=== PATIENT | male | born 1970 | race Caucasian/White ===

== ENCOUNTER 2016-09-30 07:49 | Emergency (ER) | payer OTHER ==
[2016-09-30 07:49] VITALS: BMI 29.0
[2016-09-30] MEDS ORDERED: Lidocaine 5% Patch TD STA (08:30)
[2016-09-30] MEDS ORDERED: Lidocaine 5% Patch TD ONE (08:47)
--- NOTE | 2016-09-30 09:44 | RAD ---
Left shoulder three views History: Shoulder pain. Comparison: None available. Findings: Moderate narrowing of the left glenohumeral joint space. Moderate degenerative changes of the acromioclavicular joint space with subchondral sclerosis and bony hypertrophy. No evidence of acute displaced fracture or dislocation. Impression: Moderate degenerative changes of the left shoulder. If pain persists, consider MRI.
[2016-09-30 09:49] VITALS: BP 109/72; PULSE 67; RESP 20; TEMP 98.1; O2SAT 97
--- NOTE | 2016-09-30 10:27 | C.PDOC ---
History Of Present Illness 46 yr old male presents to the ER with complaints of left shoulder pain, radiating down to the left arm for the past 2 days. Patient states the pain started in the night when he rolled over in bed. 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 States the pain is relieved when he lifts his arm above his head. Denies trauma, chest pain, SOB, neck pain, back pain, weakness or numbness. Time Seen by Provider: 09/30/16 08:13 Chief Complaint (Nursing): Upper Extremity Problem/Injury History Per: Patient History/Exam Limitations: no limitations Onset/Duration Of Symptoms: Days (2 days) Current Symptoms Are (Timing): Still Present Past Medical History Reviewed: Historical Data, Nursing Documentation, Vital Signs Vital Signs: Last Vital Signs Temp 98.1 F 09/30/16 09:48 Pulse 67 09/30/16 09:48 Resp 20 09/30/16 09:48 BP 109/72 09/30/16 09:48 Pulse Ox 97 09/30/16 11:39 Family History: States: No Known Family Hx - Social History Hx Alcohol Use: No Hx Substance Use: No - Immunization History Hx Tetanus Toxoid Vaccination: No Hx Influenza Vaccination: No Hx Pneumococcal Vaccination: No Review Of Systems Except As Marked, All Systems Reviewed And Found Negative. Cardiovascular: Negative for: Chest Pain Respiratory: Negative for: Shortness of Breath Musculoskeletal: Positive for: Shoulder Pain (Left shoulder ), Arm Pain (Left arm ). Negative for: Neck Pain, Back Pain Neurological: Negative for: Weakness, Numbness Physical Exam - Physical Exam Appears: Non-toxic, No Acute Distress Skin: Warm, Dry, No Rash Head: Atraumatic, Normacephalic Neck: Normal, Normal ROM, Supple Chest: Symmetrical, No Tenderness Cardiovascular: Rhythm Regular, No Murmur Respiratory: Normal Breath Sounds, No Rales, No Rhonchi, No Stridor, No Wheezing Extremity: Tenderness (Diffusly tender to the inferior left scapula. ), Capillary Refill (<2), Other ((+) Difficulty moving the left arm with internal rotation. ) Neurological/Psych: Oriented x3, Normal Speech, Normal Motor ED Course And Treatment ECG: Interpreted By Me ECG Rhythm: Sinus Rhythm ECG Interpretation: No Acute Changes Rate From EC O2 Sat by Pulse Oximetry: 97 (RA ) Pulse Ox Interpretation: Normal - Other Rad X-Ray - Left Shoulder X-Ray: Viewed By Me, Read By Radiologist Interpretation: Left shoulder three views. History: Shoulder pain. Comparison : None available. Findings: Moderate narrowing of the left glenohumeral joint space. Moderate degenerative changes of the acromioclavicular joint space with subchondral sclerosis and bony hypertrophy. No evidence of acute displaced fracture or dislocation. Impression: Moderate degenerative changes of the left shoulder. If pain persists, consider MRI. Progress Note: Toradol IM. Lidoderm patch. On re-evaluation feels better. Arm sling was applied. Patient was d/c home with PMD and Ortho follow up. Medical Decision Making Medical Decision Making: PLAN: * X-Ray - Left Shoulder * EKG * Lidoderm TD * Toradol IM Disposition - Disposition Referrals: Erick Topete III, MD [Staff Provider] - [facility] [Outside] [facility] [Outside] Disposition: HOME/ ROUTINE Disposition Time: 11:37 Condition: STABLE Additional Instructions: Follow up with PMD and Orthopedist within 2-3 days. Return to ED if feel worse. Prescriptions: Ibuprofen [Motrin Tab] 600 mg PO Q8 #30 tab oxyCODONE/Acetaminophen [Percocet 5/325 mg Tab] 1 tab PO QID PRN #20 tab PRN Reason: Pain Instructions: Shoulder Pain (ED) Forms: [facility] (Portuguese) Print Language: SOMALI - Clinical Impression Clinical Impression: Shoulder pain - PA / GAME MASTER / Resident Statement MD/DO has reviewed & agrees with the documentation as recorded. - Scribe Statement The provider has reviewed the documentation as recorded by the Scribe Ariela Aguilar All medical record entries made by the Scribe were at my direction and personally dictated by me. I have reviewed the chart and agree that the record accurately reflects my personal performance of the history, physical exam, medical decision making, and the department course for this patient. I have also personally directed, reviewed, and agree with the discharge instructions and disposition.
== END 2016-09-30 11:40 | disposition home or self-care (01) ==
LOC: C.ER 07:49
DX: M25.512 Pain in left shoulder (principal)
CPT/HCPCS: 73030; 96372; 99284; J1885

== ENCOUNTER 2017-06-18 11:19 | Emergency (ER) | payer OTHER ==
[2017-06-18 11:20] VITALS: BMI 29.0
[2017-06-18 11:49] VITALS: BP 146/88; PULSE 86; RESP 18; TEMP 98.1; O2SAT 97
--- NOTE | 2017-06-18 12:39 | C.PDOC ---
History Of Present Illness 47 y/o male presents to the ED for evaluation of generalized hives and itchiness that has been intermittent for 1 week. Patient denies known cause or exposure. Denies shortness of breath, nausea and vomiting. GEN HIVES, ITCH X 1 WEEK. INTERMIT. NO KNOWN CAUSE, EXPOSURE. NO SOB, NV EXAM NARD SKIN GEN HIVES NO ANGIOEDEMA REMAINDER NEG Time Seen by Provider: 06/18/17 11:55 Chief Complaint (Nursing): Allergic Reaction History Per: Patient History/Exam Limitations: no limitations Onset/Duration Of Symptoms: Intermittent Episodes (1 week) Current Symptoms Are (Timing): Still Present Possible Cause: Unknown Associated Symptoms: Itching Additional History Per: Patient Past Medical History Reviewed: Historical Data, Nursing Documentation, Vital Signs Vital Signs: Last Vital Signs Temp 98.1 F 06/18/17 11:46 Pulse 86 06/18/17 11:46 Resp 18 06/18/17 11:46 BP 146/88 06/18/17 11:46 Pulse Ox 97 06/18/17 12:52 - Medical History PMH: No Chronic Diseases Surgical History: No Surg Hx Family History: States: Unknown Family Hx - Social History Hx Alcohol Use: No Hx Substance Use: No - Immunization History Hx Tetanus Toxoid Vaccination: No Hx Influenza Vaccination: No Hx Pneumococcal Vaccination: No Review Of Systems Respiratory: Negative for: Shortness of Breath Gastrointestinal: Negative for: Nausea, Vomiting Skin: Positive for: Other (generalized hives and itchiness ) Physical Exam - Physical Exam Appears: Non-toxic, Other (no acute respiratory distress ) Skin: Warm, Dry, Other (generalized hives. no angioedema ) Head: Atraumatic, Normacephalic Eye(s): bilateral: Normal Inspection Oral Mucosa: Moist Neck: Supple Chest: Symmetrical, No Deformity, No Tenderness Cardiovascular: Rhythm Regular, No Murmur Respiratory: Normal Breath Sounds, No Rales, No Rhonchi, No Wheezing Extremity: Normal ROM, Calf Tenderness (less than 2 seconds ) Neurological/Psych: Oriented x3, Normal Speech, Normal Cognition ED Course And Treatment O2 Sat by Pulse Oximetry: 97 (on RA ) Pulse Ox Interpretation: Normal Progress Note: Benadryl PO, Pepcid PO, and Prednisone PO administered. Disposition Counseled Patient/Family Regarding: Diagnosis, Need For Followup, Rx Given - Disposition Referrals: [facility] [Outside] [facility] [Outside] Disposition: HOME/ ROUTINE Disposition Time: 12:51 Condition: IMPROVED Prescriptions: DiphenhydrAMINE [Benadryl] 50 mg PO TID PRN #30 cap PRN Reason: Itching / Pruritus Famotidine [Pepcid AC] 10 mg PO DAILY #4 tablet predniSONE [Prednisone] 60 mg PO DAILY #12 tab Instructions: Hives (DC) Forms: Work/School/Gym Excuse, [facility] (Lao) - Clinical Impression Clinical Impression: Allergic urticaria - Scribe Statement The provider has reviewed the documentation as recorded by the Scribe (Debi Still) Provider Attestation: All medical record entries made by the Scribe were at my direction and personally dictated by me. I have reviewed the chart and agree that the record accurately reflects my personal performance of the history, physical exam, medical decision making, and the department course for this patient. I have also personally directed, reviewed, and agree with the discharge instructions and disposition.
== END 2017-06-18 13:02 | disposition home or self-care (01) ==
LOC: C.ER 11:19
DX: L50.0 Allergic urticaria (principal)

== ENCOUNTER 2018-01-12 17:52 | Emergency (ER) | payer OTHER ==
[2018-01-12 17:53] VITALS: BMI 29.0
[2018-01-12 18:05] VITALS: RESP 18
[2018-01-12] MEDS ORDERED: Lidocaine 1% w Epi 1:100,000 Inj INJ ONE (18:28)
[2018-01-12] MEDS ORDERED: Tmp-Smz 800 mg-160 mg DS Tab PO STA (18:55)
[2018-01-12] MEDS ORDERED: Bacitracin 500 Units/gm Oint Foilpak UD TOP ONE (18:55)
[2018-01-12] MEDS ORDERED: Tmp-Smz 800 mg-160 mg DS Tab ONE (19:09)
[2018-01-12] MEDS ORDERED: Bacitracin 500 Units/gm Oint Foilpak UD ONE (19:09)
--- NOTE | 2018-01-12 19:18 | C.PDOC ---
History Of Present Illness 47 yo male came to ER for swelling and redness to his right face and left knee. A week ago, pt shaved and notice "hair inside" which his removed. After that the area became swollen, red and with discharge. Two day ago he noted to have redness to the left knee. He was taking ampicillin from a friend and notes the swelling improved in comparison to yesterday. (+) subjective fever. Denies chest pain, sob, abdominal pain, change in sensation, dental pain, difficulty breathing or swallowing. Notes he is up to date on tetanus. Time Seen by Provider: 01/12/18 18:15 Chief Complaint (Nursing): Abnormal Skin Integrity History Per: Patient, Family () History/Exam Limitations: no limitations Onset/Duration Of Symptoms: Days Current Symptoms Are (Timing): Still Present Quality Of Symptoms: Painful, Swollen, Draining Past Medical History Vital Signs: Last Vital Signs Temp 98.3 F 01/12/18 18:03 Pulse 96 H 01/12/18 18:03 Resp 18 01/12/18 18:03 BP 134/87 01/12/18 18:03 Pulse Ox 98 01/12/18 18:03 Family History: States: Unknown Family Hx - Social History Hx Alcohol Use: No Hx Substance Use: No - Immunization History Hx Tetanus Toxoid Vaccination: No Hx Influenza Vaccination: No Hx Pneumococcal Vaccination: No Review Of Systems Except As Marked, All Systems Reviewed And Found Negative. Constitutional: Positive for: Fever (subjective) Physical Exam - Physical Exam Appears: Well, Non-toxic, No Acute Distress Skin: Warm, Dry, Other ((+) 2 cm area of erythema and tenderness right side of the lip (+) 5cm area of erythema with central skin break to left knee) Head: Atraumatic, Normacephalic Eye(s): bilateral: Normal Inspection, EOMI Nose: Normal Oral Mucosa: Moist Neck: Normal, Normal ROM, Supple Chest: Symmetrical Respiratory: No Accessory Muscle Use Back: Normal Inspection Extremity: Normal ROM Neurological/Psych: Oriented x3, Normal Speech ED Course And Treatment O2 Sat by Pulse Oximetry: 98 Progress Note: Area of erythema was circled. Lip abscess was aspirated with purulent discharge. Discussed concern for scarring, no incision was made. Instructed wound care and wound check in 2 days. Discussed return precautions. - Incision & Drainage Of Abscess Anesthesia: Lidocaine 1%, With Epi Prep Used: Sterile Water, Betadine Procedure: Incised W/Scalpel Blade#: (area was aspirated, no incision was made), Drained Pus, Irrigated Cavity W/Saline, Cultures Obtained And Sent To Lab Disposition - Disposition Disposition: HOME/ ROUTINE Disposition Time: 19:16 Condition: STABLE Additional Instructions: Return in 2 days for a wound check or sooner if symptoms persist or worsen. Prescriptions: Cephalexin [cephalexin] 500 mg PO BID #14 cap Mupirocin 2% Ointment [Bactroban Ointment] 1 appl TP TID #1 tube Sulfamethoxazole/Trimethoprim [Bactrim DS 800 mg-160 mg] 1 tab PO BID #14 tab Instructions: Abscess Incision and Drainage (DC) Forms: [employer] (Khmer) - Clinical Impression Clinical Impression: Incisional abscess
[2018-01-12 19:50] VITALS: BP 151/91; PULSE 94; TEMP 99.4
[2018-01-12 21:01] VITALS: O2SAT 98
== END 2018-01-12 19:50 | disposition home or self-care (01) ==
LOC: C.ER 17:52
DX: K13.0 Diseases of lips (principal)

== ENCOUNTER 2018-01-14 09:33 | Emergency (ER) | payer OTHER ==
[2018-01-14 09:41] VITALS: BMI 32.3
[2018-01-14 09:42] VITALS: BP 132/84; PULSE 72; RESP 16; TEMP 98; O2SAT 98
--- NOTE | 2018-01-14 10:34 | C.PDOC ---
History Of Present Illness 47 year old male presents to the ED for a wound check on the right jaw and left knee s/p I&D 2 days ago in the ED. Patient reports pain to the area has improved. Wound culture was sent, +MRSA, patient notes he has not begun his prescribed antibiotics because the pharmacy was closed yesterday. Denies fever, nausea, vomiting, tingling, numbness, and any other associated symptoms. Time Seen by Provider: 01/14/18 09:50 Chief Complaint (Nursing): Abnormal Skin Integrity History Per: Patient History/Exam Limitations: no limitations Past Medical History Reviewed: Historical Data, Nursing Documentation, Vital Signs Vital Signs: Last Vital Signs Temp 98.0 F 01/14/18 09:41 Pulse 72 01/14/18 09:41 Resp 16 01/14/18 09:41 BP 132/84 01/14/18 09:41 Pulse Ox 98 01/14/18 09:41 Family History: States: Unknown Family Hx - Social History Hx Alcohol Use: No Hx Substance Use: No - Immunization History Hx Tetanus Toxoid Vaccination: No Hx Influenza Vaccination: No Hx Pneumococcal Vaccination: No Review Of Systems Constitutional: Negative for: Fever Gastrointestinal: Negative for: Nausea, Vomiting Skin: Positive for: Other (wound check: right jaw and left knee. ) Physical Exam - Physical Exam Appears: Well, Non-toxic, No Acute Distress Skin: Normal Color, Warm, Dry Head: Atraumatic, Normacephalic Eye(s): bilateral: Normal Inspection Oral Mucosa: Moist, Other (right corner of the mouth: small abscess with center pustule with purulent discharge.) Chest: Symmetrical, No Deformity Cardiovascular: Rhythm Regular, No Murmur Respiratory: Normal Breath Sounds, No Rales, No Rhonchi, No Wheezing Extremity: Normal ROM, Tenderness (to the left knee. ), Capillary Refill (less than 2 seconds.), No Deformity, No Swelling, Other (above the left knee: 3cm induration abscess.) Neurological/Psych: Oriented x3, Normal Speech ED Course And Treatment O2 Sat by Pulse Oximetry: 98 (RA) Pulse Ox Interpretation: Normal Medical Decision Making Medical Decision Making: Progress/Update: Patient stable for discharge home. Advised to take the prescribed antibiotics today. Disposition Counseled Patient/Family Regarding: Diagnosis, Need For Followup - Disposition Referrals: [facility] [Outside] Disposition: HOME/ ROUTINE Disposition Time: 10:35 Condition: STABLE Additional Instructions: FOLLOW UP WITH YOUR DOCTOR/CLINIC IN 1-2 DAYS FILL ANTIBIOTICS AND TAKE THEM UNTIL FINISHED RETURN TO ER IF SYMPTOMS WORSEN Instructions: Skin Abscess Forms: [facility] (Telugu) Print Language: ROMANSH - Clinical Impression Clinical Impression: Abscess - Scribe Statement The provider has reviewed the documentation as recorded by the Scribe (Ariella Lott) Provider Attestation: All medical record entries made by the Scribe were at my direction and personally dictated by me. I have reviewed the chart and agree that the record accurately reflects my personal performance of the history, physical exam, medical decision making, and the department course for this patient. I have also personally directed, reviewed, and agree with the discharge instructions and disposition.
== END 2018-01-14 10:43 | disposition home or self-care (01) ==
LOC: C.ER 09:33
DX: L02.01 Cutaneous abscess of face (principal); L02.416 Cutaneous abscess of left lower limb